=== PATIENT | female | born 1965 | race Asian ===

== ENCOUNTER 2021-05-28 05:40 | Day surgery (SDC) | payer BC, SELFPAY ==
[2021-05-24 10:07] LABS: BASOPHILS % (AUTO) 0.9 % (0.0-2.0); EOSINOPHILS # (AUTO) 0.3 K/uL (0.0-0.4); EOSINOPHILS % (AUTO) 5.2 % (0.0-4.0); LYMPHOCYTES # (AUTO) 2.4 K/uL (1.0-5.5); LYMPHOCYTES % (AUTO) 44.9 % (20.5-51.5); MEAN CORPUSCULAR HEMOGLOBIN 33 pg (27-31); MEAN CORPUSCULAR HGB CONC 34 % (32-36); MEAN CORPUSCULAR VOLUME 96 fL (79.0-98.0); MONOCYTES # (AUTO) 0.3 K/uL (0.0-1.0); MONOCYTES % (AUTO) 5.6 % (1.7-9.3); NEUTROPHILS # (AUTO) 2.4 K/uL (1.8-7.7); NEUTROPHILS % (AUTO) 43.4 % (40.0-70.0); PLATELET COUNT (AUTO) 218 K/uL (130-430); RED BLOOD CELL COUNT(AUTO) 4.57 MIL/uL (4.2-6.2); WHITE BLOOD COUNT (AUTO) 5.4 K/uL (4.8-10.8)
[2021-05-24 10:14] LABS: BILIRUBIN,URINE NEGATIVE (NEGATIVE); CLARITY/URINE CLEAR (CLEAR); COLOR,URINE YELLOW (YELLOW); GLUCOSE,URINE NEGATIVE (NEGATIVE); KETONES,URINE NEGATIVE (NEGATIVE); LEUKOCYTE ESTERASE ,URINE TRACE (NEGATIVE); NITRITE, URINE NEGATIVE (NEGATIVE); PROTEIN URINE NEGATIVE (NEGATIVE); UROBILINOGEN,URINE 0.2 (0.2-1.0)
[2021-05-24 10:19] LABS: BLOOD, URINE TRACE (NEGATIVE)
[2021-05-24 10:20] LABS: INR 0.9 (0.8-1.2); PROTHROMBIN TIME 9.2 SECS (9.5-12.5)
[2021-05-24 10:23] LABS: ALBUMIN 4.1 g/dL (3.4-4.8); CALCIUM 9.4 mg/dL (8.4-11.0); CREATININE 0.53 mg/dL (0.55-1.30); POTASSIUM 3.8 mmol/L (3.5-5.1); TOTAL BILIRUBIN 0.4 mg/dL (0.0-1.0)
[2021-05-24 11:44] LABS: BACTERIA,URINE None Seen /HPF (None Seen); WBC,URINE NONE SEEN /HPF (0-3)
[~2021-05-28] VITALS: Ht 152.4 cm; Wt 47.6 kg
[2021-05-28] MEDS ORDERED: CEFAZOLIN SOD 2 GM in D5W 50 ML IV ONE (07:00)
[2021-05-28] MEDS ORDERED: fentaNYL CITRATE 250 MCG/5 ML AMP IV ONE (07:28)
[2021-05-28] MEDS ORDERED: ONDANSETRON HCL 4 MG/2 ML VIAL IVP ONE ×2 (07:28)
[2021-05-28] MEDS ORDERED: NORMAL SALINE 10 ML VIAL IVP ONE ×2 (07:28)
[2021-05-28] MEDS ORDERED: fentaNYL CITRATE/PF 100 MCG/2 ML AMP IVP ONE (07:28)
[2021-05-28] MEDS ORDERED: EPINEPHrine 1 MG/ML AMP IV ONE (07:28)
[2021-05-28] MEDS ORDERED: DIPHENHYDRAMINE INJ 50 MG/ML VIAL IV ONE ×2 (07:28)
[2021-05-28] MEDS ORDERED: NS 1000 ML IV.SOLN IV ONE ×2 (07:28)
[2021-05-28] MEDS ORDERED: MIDAZOLAM HCL 5 MG/5 ML VIAL IVP ONE ×2 (07:28)
[2021-05-28] MEDS ORDERED: SEVOFLURANE 15 MIN GAS INH ONE ×2 (07:28)
[2021-05-28] MEDS ORDERED: DEXAMETHASONE SOD PHOSPHATE 4 MG/ML VIAL IVP ONE (07:28)
[2021-05-28] MEDS ORDERED: LR 1,000 ML IV.SOLN IV ONE ×2 (07:28)
[2021-05-28] MEDS ORDERED: ePHEDrine sulfate 50 MG/ML VIAL IVP ONE ×2 (07:28)
[2021-05-28] MEDS ORDERED: PROPOFOL 200MG/ 20ML VIAL (DIPRIVAN) IV ONE ×2 (07:28)
[2021-05-28] MEDS ORDERED: NS IRRIG SOLN 1000 ML IR ONE ×2 (07:28)
[2021-05-28] MEDS ORDERED: EPINEPHrine JECT 0.1 MG/ML SYR IVP ONE (07:28)
[2021-05-28] MEDS ORDERED: NS 50 ML BAG IV ONE ×2 (07:28)
[2021-05-28] MEDS ORDERED: ONDANSETRON HCL 4 MG/2 ML VIAL IVP PRN (08:45)
[2021-05-28] MEDS ORDERED: HYDROcodone/ACETAMIN 5-325 MG TAB (NORCO/ VICODIN) PO PRN (08:45)
[2021-05-28 11:17] VITALS: BP_SYST 157
== END 2021-05-28 10:45 | disposition home or self-care (01) ==
LOC: SDS 05:40 → SMU 05:40 → SDS 10:45
PROVIDERS: ATTEND Obstetrics & Gynecology Gynecology
DX: T83.89XA Other specified complication of genitourinary prosthetic devices, implants and grafts, initial encounter (principal); N95.0 Postmenopausal bleeding; I10 Essential (primary) hypertension; E03.9 Hypothyroidism, unspecified; Y83.8 Other surgical procedures as the cause of abnormal reaction of the patient, or of later complication, without mention of misadventure at the time of the procedure
CPT/HCPCS: 36415 ×2; 58562; 71046; 80053; 81000; 85025; 85610; 85730; 86886 ×2; 86900 ×2; 86901 ×2; 87070 ×2; 87075; 87086; 87426; J0171 ×2; J0690; J1100; J1200; J2250; J2405; J2704; J3010 ×2; J7030; J7060; J7120; U0003